=== PATIENT | male | born 1985 ===

== ENCOUNTER → 2022-08-15 07:00 | Outpatient (CLI) | payer OTHER, SELFPAY ==
--- NOTE | ~2022-08-15 | MR_ITS ---
MRI of the left ankle Clinical history: Pain, peroneal tendinopathy Technique: Coronal proton-density and proton-density fat-sat images, axial proton-density and proton- density fat-sat images, and sagittal proton-density and proton-density fat-sat images were acquired. Findings: Syndesmotic ligaments are intact. Anterior and posterior talofibular ligaments, and calcane ofibular ligament are intact. Deltoid ligament is intact. Medial flexor tendons, peroneal tendons, anterior extensor tendons, and Achilles tendon are intact. T here is minimal Achilles tendinosis. There is diffuse marrow edema of the talus, relatively sparing the distal talar head. No fracture wesley ntified. No osteochondral lesion of the talar dome evident. There is patchy marrow edema in the midfo ot, predominantly about the tarsometatarsal articulations. No joint effusion identified. Plantar fascia is intact. Normal signal preserved in the sinus Tarsi. No soft tissue mass or fluid co llection identified. Impression: Diffuse talar bone marrow edema, without evidence of fracture or osteochondral lesion. Findings could reflect diffuse bone contusion. Other potential considerations could include early avascular necrosi s or transient osteoporosis. Patchy marrow edema about the tarsometatarsal articulations. Findings could again reflect bone contus ions. Correlate for any possibility of early changes related to developing Charcot foot or underlying inflammatory arthropathy. Reviewed, dictated and finalized at [facility]. [employer] Impression: Diffuse talar bone marrow edema, without evidence of fracture or osteochondral lesion. Findings could reflect diffuse bone contusion. Other potential consider ations could include early avascular necrosis or transient osteoporosis. Patchy marrow edema about the tarsometatarsal articulations. Findings could aga in reflect bone contusions. Correlate for any possibility of early changes rela cyril to developing Charcot foot or underlying inflammatory arthropathy.
== END ==
PROVIDERS: PCP Podiatrist Foot & Ankle Surgery; Visit Provider Podiatrist Foot & Ankle Surgery
DX: M76.72 Peroneal tendinitis, left leg (principal); R60.9 Edema, unspecified
CPT/HCPCS: 73721

== ENCOUNTER 2024-01-07 11:58 | Emergency (ER) | payer OTHER, SELFPAY ==
--- NOTE | ~2024-01-07 | XR_ITS ---
Left Hand Technique: PA, oblique, and lateral views were obtained. Clinical History: Laceration Findings: No acute fracture or dislocation is seen. Osseous alignment is anatomic. Joint spaces are p reserved. Soft tissues are unremarkable. Impression: Unremarkable left hand. Reviewed, dictated and finalized at location . Impression: Unremarkable left hand.
[2024-01-07 12:09] VITALS: BP 124/87; PULSE 91; RESP 20; TEMP 36.3; O2SAT 100
--- NOTE | 2024-01-07 14:28 | ED.WOUNDLAC ---
HPI - Wound/Laceration General Chief Complaint: Wound/Laceration Stated Complaint: hand injury Time Seen by Provider: 01/07/24 13:48 Source: patient Mode of arrival: ambulatory Limitations: no limitations History of Present Illness HPI narrative: This is a 38-year-old male that presents to the emergency department for laceration to his left hand sustained just prior to arrival. Reports he accidentally cut his hand while using a drill. He is unsure of his last tetanus vaccination. Denies decreased range of motion or numbness. Related Data Allergies Allergy/AdvReac Type Severity Reaction Status Date / Time No Known Allergies Allergy Verified 01/07/24 12:08 Review of Systems Review of Systems: CONSTITUTIONAL: Denies fever SKIN: Reports laceration. MUSCULOSKELETAL: Denies joint pain NEUROLOGIC: Denies numbness All systems reviewed & are unremarkable except as noted in HPI and below PMFSH Past Medical History Medical History (Updated 01/07/24 @ 15:20 by Reny Lin PA-C) No active medical problems Social History Social History (Updated 01/07/24 @ 14:29 by Reny Lin PA-C) Smoking status: Current every day smoker Smokeless tobacco user: dissolvable tobacco Exam Narrative: GENERAL: Well-appearing, well-nourished, and in no acute distress. HEAD: Normocephalic, atraumatic. EYES: EOMI. EXTREMITIES: Normal range of motion. No edema. Lacerations into the subcutaneous tissue to the base of the left thumb and left 2nd finger. Additional laceration into subcutaneous tissue to the left 2nd finger distal phalanx SKIN: Warm, dry, no rash. NEURO: No focal deficits. Alert and oriented x3. PSYCH: Normal mood and affect Course Course Emergency Course: Patient educated on further wound care Vital Signs Vital signs: Vital Signs Temperature 97.3 F L 01/07/24 12:09 Pulse Rate 91 01/07/24 12:09 Respiratory Rate 20 01/07/24 12:09 Blood Pressure 124/87 01/07/24 12:09 Pulse Oximetry 100 01/07/24 12:09 Oxygen Delivery Room Air 01/07/24 12:09 Temperature 97.3 F L 01/07/24 12:09 Pulse Rate 91 01/07/24 12:09 Respiratory Rate 20 01/07/24 12:09 Blood Pressure 124/87 01/07/24 12:09 Pulse Oximetry 100 01/07/24 12:09 Oxygen Delivery Room Air 01/07/24 12:09 Procedures Laceration Laceration 1: Date: 01/07/24 Site: hand Side (If applicable): left Size (cm): 2.5 Description: linear Depth: simple, single layer Local Anesthetic: lidocaine 1% Amount of anesthesia used (mL): 2 Pre-repair: wound explored and irrigated ====== Skin Level ====== Skin layer closed with: nylon Size (cm): 4-0 Number of sutures: 3 Technique: simple, interrupted ====== Subcutaneous Layer ====== ====== Muscle Layer ====== ====== Tendon Layer ====== Laceration 2: Date: 01/07/24 Site: hand Side (If applicable): left Size (cm): 2 Description: linear Depth: simple, single layer Local Anesthetic: lidocaine 1% Amount of anesthesia used (mL): 1 Pre-repair: wound explored and irrigated ====== Skin Level ====== Skin layer closed with: nylon Size (cm): 4-0 Number of sutures: 2 Technique: simple, interrupted ====== Subcutaneous Layer ====== ====== Muscle Layer ====== ====== Tendon Layer ====== Laceration 3: Date: 01/07/24 Site: hand Side (If applicable): left Size (cm): 2.5 Description: linear Depth: simple, single layer Local Anesthetic: lidocaine 1% Amount of anesthesia used (mL): 2 Pre-repair: wound explored and irrigated ====== Skin Level ====== Skin layer closed with: nylon Size (cm): 4-0 Number of sutures: 3 Technique: simple, interrupted ====== Subcutaneous Layer ======
[2024-01-07] MEDS: TETANUS,DIPHTHERIA,AC PERTUSSIS ADULT (0.5 ML) BOOSTRIX IM (14:36)
== END 2024-01-07 15:34 | disposition home or self-care (01) ==
PROVIDERS: Emergency Provider Physician Assistant; PCP Podiatrist Foot & Ankle Surgery
DX: S61.412A Laceration without foreign body of left hand, initial encounter (principal); Z23 Encounter for immunization; F17.290 Nicotine dependence, other tobacco product, uncomplicated; W29.8XXA Contact with other powered hand tools and household machinery, initial encounter
CPT/HCPCS: 12002; 73130; 90471; 90715; 99283